=== PATIENT | female | born 1950 | race Caucasian/White ===

== ENCOUNTER 2019-04-11 11:09 | Emergency (ER) | payer MEDICARE, BC ==
[~2019-04-11 11:09] MED LIST: CALCIUM CHLORIDE 100 MG/ML 10 ML SYRINGE ONE; EPINEPHrine 10 ML SYRINGE (0.1 MG/ML) ONE; SODIUM BICARB 8.4% 50 ML SYR (1 MEQ/ML) ONE
[2019-04-11 11:20] VITALS: BP 0/0; PULSE 70; RESP 0
[2019-04-11] MEDS ORDERED: EPINEPHrine 4 MG in DEXTROSE 5% IN WATER 250 ML IV ONE ×2 (11:45)
--- NOTE | 2019-04-11 12:21 | ED ---
General Adult HPI - General Chief complaint: Cardiac Arrest/CPR Stated complaint: unresponsive Source: family, EMS, RN notes reviewed, old records reviewed Mode of arrival: EMS Limitations: altered mental status, physical limitation - History of Present Illness Initial comments: 69-year-old female presenting as out of Hospital cardiac arrest. Initial call to paramedics was for dyspnea. Patient was found to be hypoxic in the 80s. She did have agonal respirations. CPR was initiated patient was transported to the ambulance. At This time she had some improvement of respirations and had a bradycardic pulse. She was paced with transcutaneous pacing by EMS prior to arrival. She received bag valve mask ventilations during transport. Upon arrival patient had agonal respirations, no palpable pulse. CPR was initiated. According to EMS and the patient's she had not been well with flulike symptoms for the past 2 weeks. Otherwise no chronic medical history known. - Related Data Home Medications Medication Instructions Recorded Confirmed No Known Home Medications 04/11/19 04/11/19 Allergies Allergy/AdvReac Type Severity Reaction Status Date / Time No Known Allergies Allergy Verified 04/11/19 11:42 Review of Systems ROS Statement: Those systems with pertinent positive or pertinent negative responses have been documented in the HPI. ROS Other: All systems not noted in ROS Statement are negative. Past Medical History Past Medical History: No Reported History History of Any Multi-Drug Resistant Organisms: Unobtainable Past Surgical History: No Surgical Hx Reported Past Psychological History: No Psychological Hx Reported Smoking Status: Unknown if ever smoked Past Alcohol Use History: Unable to Obtain Past Drug Use History: Unable to Obtain General Exam Limitations: altered mental status, physical limitation Head exam: Present: atraumatic, normocephalic Eye exam: Absent: PERRL (Pupils 5 mm bilaterally and nonreactive) Neck exam: Present: other (JVD) Respiratory exam: Present: other (Bilateral breath sounds with BVM, bilateral rhonchi and rales) Cardiovascular Exam: Present: bradycardia (Patient had PEA with bradycardia, no heart sounds auscultated) GI/Abdominal exam: Present: soft. Absent: distended, tenderness, guarding Extremities exam: Present: other (Peripheral cyanosis) Skin exam: Present: warm, dry, cyanosis Course Vital Signs 04/11/19 11:14 Pulse Rate 70 Respiratory 0 L Rate Blood Pressure 0/0 Procedures - Intubation Laryngoscope: Avtar Size: 3 ET Tube Size: 7.5 ET Tube Uncuffed: No Tube Secured Depth (cm): 22 Tube Secured Location: lips Tube Placement Confirmation: visualized tube passing through cords, equal breath sounds bilaterally, no breath sounds over epigastrium, confirmation by capnometry Patient Tolerated Procedure: well Intubation Complications: none Medical Decision Making - Medical Decision Making 69-year-old female presenting in cardiac arrest. Initial rhythm is PEA, no palpable pulse, patient did have several agonal respirations in the emergency d epartment, she was immediately intubated, ACLS protocol. Please refer to nursing documentation regarding exact medication administration. Patient remained in asystole or pulseless electrical activity throughout resuscitation attempts. Rhythm was continuously bradycardic with no atrial activity seen on the monitor. She was given bicarbonate, calcium chloride, epinephrine per ACLS protocol Bedside ultrasound was performed throughout resuscitation, there was minimal cardiac activity with no significant perfusing cardiac Function, no visualized effusion. Resuscitative efforts were continued for one hour in the emergency department. Case was discussed with her . Ultimately CPR was discontinued at 1204, time of 1204. - Lab Data Result diagrams: 04/11/19 11:20 04/11/19 11:20 Lab Results 04/11/19 04/11/19 04/11/19 Range/Units 11:20 11:20 11:20 WBC 13.4 H (3.8-10.6) k/uL RBC 4.21 (3.80-5.40) m/uL Hgb 12.3 (11.4-16.0) gm/dL Hct 40.4 (34.0-46.0) % MCV 95.9 (80.0-100.0) fL MCH 29.1 (25.0-35.0) pg MCHC 30.4 L (31.0-37.0) g/dL RDW 13.3 (11.5-15.5) % Plt Count 17 L* (150-450) k/uL Neutrophils % 62 % Lymphocytes % 30 % Monocytes % 4 % Eosinophils % 1 % Basophils % 0 % Neutrophils # 8.4 H (1.3-7.7) k/uL Lymphocytes # 4.1 (1.0-4.8) k/uL Monocytes # 0.6 (0-1.0) k/uL Eosinophils # 0.2 (0-0.7) k/uL Basophils # 0.1 (0-0.2) k/uL Manual Slide Review Performed Hypochromasia Marked Sodium 139 (137-145) mmol/L Potassium 4.1 (3.5-5.1) mmol/L Chloride 111 H (98-107) mmol/L Carbon Dioxide 12 L (22-30) mmol/L Anion Gap 16 mmol/L BUN 23 H (7-17) mg/dL Creatinine 1.45 H (0.52-1.04) mg/dL Est GFR (CKD-EPI)AfAm 42 (>60 ml/min/1.73 sqM) Est GFR (CKD-EPI)NonAf 36 (>60 ml/min/1.73 sqM) Glucose 257 H (74-99) mg/dL Calcium 8.7 (8.4-10.2) mg/dL Total Bilirubin 0.6 (0.2-1.3) mg/dL AST 92 H (14-36) U/L ALT 69 H (9-52) U/L Alkaline Phosphatase 48 (38-126) U/L Troponin I 0.069 H* (0.000-0.034) ng/mL Total Protein 4.8 L (6.3-8.2) g/dL Albumin 2.7 L (3.5-5.0) g/dL Critical Care Time Critical Care Time: Yes Total Critical Care Time: 60 Disposition Clinical Impression: Sudden cardiac Disposition: Condition: Undetermined Is patient prescribed a controlled substance at d/c from ED?: No Referrals: Esvin Keene MD [Primary Care Provider] - 1-2 days Time of Disposition: 12:05 Preliminary Cause of : Cardiopulmonary arrest
[2019-04-11 12:51] LABS: Basophils # (A) 0.1 k/uL (0-0.2); Basophils % (A) 0 %; Eosinophils # (A) 0.2 k/uL (0-0.7); Eosinophils % (A) 1 %; HCT 40.4 % (34.0-46.0); HGB 12.3 gm/dL (11.4-16.0); Hypochromasia Marked; Lymphocytes # (A) 4.1 k/uL (1.0-4.8); Lymphocytes % (A) 30 %; MCH 29.1 pg (25.0-35.0); MCHC 30.4 g/dL (31.0-37.0); MCV 95.9 fL (80.0-100.0); Mean Platelet Volume 11.3; Monocytes # (A) 0.6 k/uL (0-1.0); Monocytes % (A) 4 %; Neutrophils # (A) 8.4 k/uL (1.3-7.7); Neutrophils % (A) 62 %; RBC 4.21 m/uL (3.80-5.40); RDW 13.3 % (11.5-15.5); WBC 13.4 k/uL (3.8-10.6)
[2019-04-11 12:58] LABS: Albumin 2.7 g/dL (3.5-5.0); Calcium 8.7 mg/dL (8.4-10.2); Total Bilirubin 0.6 mg/dL (0.2-1.3); Total Protein 4.8 g/dL (6.3-8.2)
[2019-04-11 13:04] LABS: Potassium 4.1 mmol/L (3.5-5.1)
[2019-04-11 13:26] LABS: Platelet Count 17 k/uL (150-450)
== END 2019-04-11 12:05 | disposition expired ==
LOC: EC 11:09
DX: I46.9 Cardiac arrest, cause unspecified (principal)
CPT/HCPCS: 36415; 80053; 84484; 85025; 99291; 31500; 92950; J0171